=== PATIENT | male | born 1960 | race Caucasian/White ===

== ENCOUNTER 2016-12-18 19:05 | Emergency (ER) | payer OTHER ==
[~2016-12-18] VITALS: Ht 170.2 cm; Wt 81.7 kg
[~2016-12-18 19:05] MED LIST: FLONASE ALLERG9.9 ML NS; MULTIVITAMINS1 EAC7 PO; NORCO 5-325 TA1 EACH PO
[2016-12-18] MEDS ORDERED: VITAMIN D1000 UNI1 PO (19:12)
== END 2016-12-18 19:50 | disposition home or self-care (01) ==
LOC: ED 19:05
DX: S51.812A Laceration without foreign body of left forearm, initial encounter (principal); F17.200 Nicotine dependence, unspecified, uncomplicated; Z79.899 Other long term (current) drug therapy; X58.XXXA Exposure to other specified factors, initial encounter
CPT/HCPCS: 73110; 99283

== ENCOUNTER 2017-05-13 21:20 | Emergency (ER) | payer OTHER ==
[~2017-05-13] VITALS: Ht 170.2 cm; Wt 81.7 kg
[~2017-05-13 21:20] MED LIST changes: +VITAMIN D1000 UNI1 PO
[2017-05-13] MEDS ORDERED: BENTYL10 MG PO (23:28)
== END 2017-05-13 23:50 | disposition home or self-care (01) ==
LOC: ED 21:20
DX: R10.31 Right lower quadrant pain (principal); R10.32 Left lower quadrant pain; F17.200 Nicotine dependence, unspecified, uncomplicated
CPT/HCPCS: 74177; 80053; 81001; 83690; 85025; 96361; 96374; 96375; 99284; J1170; J2405; J7030; Q9967

== ENCOUNTER 2017-05-15 18:52 | Emergency (ER) | payer OTHER ==
[~2017-05-15] VITALS: Ht 170.2 cm; Wt 81.7 kg
[~2017-05-15 18:52] MED LIST changes: +BENTYL10 MG PO
[2017-05-15] MEDS ORDERED: FLAGYL500 MG PO (23:26)
[2017-05-15] MEDS ORDERED: CIPRO500 MG PO (23:26)
== END 2017-05-16 00:04 | disposition home or self-care (01) ==
LOC: ED 18:52
DX: K59.00 Constipation, unspecified (principal); F17.200 Nicotine dependence, unspecified, uncomplicated; Z79.899 Other long term (current) drug therapy
CPT/HCPCS: 80053; 81001; 83690; 85025; 99284

== ENCOUNTER 2021-07-19 18:11 | Emergency (ER) | payer OTHER ==
[~2021-07-19] VITALS: Ht 170.2 cm; Wt 81.7 kg
[~2021-07-19 18:11] MED LIST changes: +CIPRO500 MG PO; +FLAGYL500 MG PO
[2021-07-19] MEDS ORDERED: K-TAB ER20 MEQ PO (18:25)
[2021-07-19] MEDS ORDERED: MAGNESIUM30 MG PO (18:25)
== END 2021-07-19 20:28 | disposition home or self-care (01) ==
LOC: ED 18:11
DX: S86.911A Strain of unspecified muscle(s) and tendon(s) at lower leg level, right leg, initial encounter (principal); X58.XXXA Exposure to other specified factors, initial encounter
CPT/HCPCS: 73560; 96372; 99283-25; J1885

== ENCOUNTER 2021-07-24 15:48 | Emergency (ER) | payer OTHER ==
[~2021-07-24] VITALS: Ht 170.2 cm; Wt 81.7 kg
[~2021-07-24 15:48] MED LIST changes: +K-TAB ER20 MEQ PO; +MAGNESIUM30 MG PO
--- OUTSIDE RECORDS SUMMARY | 2021-07-24 15:50 | XMS ---
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 Gloria VISIT COUNT (12 MO.) 2 [facility] TOTAL 2 NOTE: Visits indicate total known visits. ED/UCC VISIT TRACKING (12 MO.) 07/24/2021 15:49 [facility] TYPE: Emergency COMPLAINT: - POSS BLOODCLOT 07/19/2021 18:12 [facility] TYPE: Emergency COMPLAINT: - R LEG INJURY DIAGNOSES: - Pain in right knee - Exposure to other specified factors, initial encounter - Strain of unspecified muscle(s) and tendon(s) at lower leg level, right leg, initial encounter INPATIENT VISIT TRACKING (12 MO.) No inpatient visits to display in this time frame [email or web address]
[2021-07-24] MEDS ORDERED: HYDROCODON-ACE1 EA10 PO (17:31)
[2021-07-24] MEDS ORDERED: ELIQUIS5 MG PO (18:05)
== END 2021-07-24 18:17 | disposition home or self-care (01) ==
LOC: ED 15:48
DX: I82.401 Acute embolism and thrombosis of unspecified deep veins of right lower extremity (principal); F17.200 Nicotine dependence, unspecified, uncomplicated; Z79.899 Other long term (current) drug therapy
CPT/HCPCS: 99283

== ENCOUNTER 2021-07-26 17:40 | Emergency (ER) | payer OTHER ==
[~2021-07-26] VITALS: Ht 170.2 cm; Wt 82.6 kg
[~2021-07-26 17:40] MED LIST changes: +ELIQUIS5 MG PO; +HYDROCODON-ACE1 EA10 PO
--- OUTSIDE RECORDS SUMMARY | 2021-07-26 17:42 | XMS ---
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 Gloira VISIT COUNT (12 MO.) 3 [facility] TOTAL 3 NOTE: Visits indicate total known visits. ED/C VISIT TRACKING (12 MO.) 07/26/2021 17:41 [facility] TYPE: Emergency COMPLAINT: - SHORTNESS OF BREATH AND CHEST PAIN 07/24/2021 15:49 [facility] TYPE: Emergency COMPLAINT: - POSS BLOODCLOT 07/19/2021 18:12 [facility] TYPE: Emergency COMPLAINT: - R LEG INJURY DIAGNOSES: - Pain in right knee - Exposure to other specified factors, initial encounter - Strain of unspecified muscle(s) and tendon(s) at lower leg level, right leg, initial encounter INPATIENT VISIT TRACKING (12 MO.) No inpatient visits to display in this time frame [email or web address]
[2021-07-26] MEDS ORDERED: VENTOLIN HFA18 GM INH (19:17)
--- NOTE | 2021-07-27 17:51 | EKG ---
[facility] [address] [place], [place] [address] Signed Normal sinus rhythm Normal ECG No previous ECGs available Confirmed by AMINATA CHATTERJEE MD ([id number]) on 07/27/2021 5:51:15 PM Electronically Signed By: AMINATA CHATTERJEE MD 07/27/211750 PATIENT NAME: TERA BENJAMIN Electrocardiogram DATE OF : 60 PHYSICIAN: AMINATA CHATTERJEE MD REPORT #: [id number] REPORT IS CONFIDENTIAL AND NOT TO BE RELEASED WITHOUT AUTHORIZATION
== END 2021-07-26 19:37 | disposition home or self-care (01) ==
LOC: ED 17:40
DX: R07.89 Other chest pain (principal); I82.401 Acute embolism and thrombosis of unspecified deep veins of right lower extremity; F17.200 Nicotine dependence, unspecified, uncomplicated; Z79.01 Long term (current) use of anticoagulants; Z79.899 Other long term (current) drug therapy
CPT/HCPCS: 36415; 71045; 80048; 84484; 85025; 93005; 93010; 99285-25

== ENCOUNTER 2022-02-27 19:50 | Emergency (ER) | payer OTHER ==
[~2022-02-27] VITALS: Ht 170.2 cm; Wt 78.5 kg
[~2022-02-27 19:50] MED LIST changes: +VENTOLIN HFA18 GM INH
== END 2022-02-27 21:13 | disposition home or self-care (01) ==
LOC: ED 19:50
DX: T15.02XA Foreign body in cornea, left eye, initial encounter (principal); F17.200 Nicotine dependence, unspecified, uncomplicated; Z79.899 Other long term (current) drug therapy; Z79.891 Long term (current) use of opiate analgesic
CPT/HCPCS: 65222; 99283-25; A9270

== ENCOUNTER 2023-01-23 23:42 | Emergency (ER) | payer OTHER ==
[~2023-01-23] VITALS: Ht 170.2 cm; Wt 81.7 kg
--- OUTSIDE RECORDS SUMMARY | ~2023-01-23 | XMS | Continuity of Care Document ---
Demographics + + + | Address | [address] | | | [place] [address] | + + + | Preferred Language | Unknown | + + + | Marital Status | Never | + + + | Judaism Affiliation | Unknown | + + + | Race | White | + + + | Ethnic Group | Not or | + + + Author + + + | Author | [facility] | + + + | Organization | [facility] | + + + | Address | [address] | | | [place] [address] | + + + | Phone | | + + + Care Team Providers + + + + | Care Business Development Officer Name | Role | Phone | + + + + Unavailable | Unavailable | + + + + Unavailable | Unavailable | + + + + Allergies No information. Encounters No information. Functional Status No information. Immunizations No information. Medications + + + + | date | description | facility | + + + + | 2021-07-24 00:00 | APIXABAN | [facility] | + + + + | 2022-02-27 00:00 | POTASSIUM CHLORIDE | [facility] | + + + + | 2022-02-27 00:00 | FLUTICASONE PROPIONATE | [facility] | + + + + | 2022-02-27 00:00 | CHOLECALCIFEROL (VITAMIN | [facility] | | | D3) | | + + + + | 2017-05-15 00:00 | CIPROFLOXACIN HCL | [facility] | + + + + | 2017-05-15 00:00 | METRONIDAZOLE | [facility] | + + + + | 2022-02-27 00:00 | MAGNESIUM | [facility] | + + + + | 2022-02-27 00:00 | HYDROCODONE | [facility] | | | BIT/ACETAMINOPHEN | | + + + + | 2013-02-05 00:00 | HYDROCODONE | [facility] | | | BIT/ACETAMINOPHEN | | + + + + | 2021-07-26 00:00 | ALBUTEROL SULFATE | [facility] | + + + + | 2017-05-13 00:00 | DICYCLOMINE HCL | [facility] | + + + + Problems + + + + | date | description | facility | + + + + | 2016-10-01 00:00 | Small bowel obstruction | [facility] | + + + + | 2016-12-18 00:00 | Laceration of left forearm | [facility] | | | | | + + + + | 2017-05-13 00:00 | Nonspecific abdominal pain | [facility] | | | | | + + + + | 2017-05-15 00:00 | Constipation | [facility] | + + + + | 2021-07-19 00:00 | Sprain of right knee | [facility] | + + + + | 2021-07-24 00:00 | Deep vein thrombosis (DVT) | [facility] | | | | | + + + + | 2021-07-26 00:00 | Chest pain | [facility] | + + + + Procedures No information. Results/Labs No information. Social History No information. Vital Signs + + + +---------+ | date | measurement | value | units | + + + +---------+ | 2022-02-27 00:00 | BMI | 27.1 | kg/m2 | + + + +---------+ | 2022-02-27 00:00 | BP_diastolic | 70 | mmHg | + + + +---------+ | 2022-02-27 00:00 | BP_systolic | 132 | mmHg | + + + +---------+ | 2022-02-27 00:00 | heart_rate | 68 | /min | + + + +---------+ | 2022-02-27 00:00 | height_metric | 170.18 | cm | + + + +---------+ | 2022-02-27 00:00 | height_standard | 67 | in | + + + +---------+ | 2022-02-27 00:00 | o2_saturation | 98 | % | + + + +---------+ | 2022-02-27 00:00 | respiration_rate | 16 | /min | + + + +---------+ | 2022-02-27 00:00 | temperature_metric | 36.83 | C | | | | | | + + + +---------+ | 2022-02-27 00:00 | | 98.3 | F | | | temperature_standar | | | | | d | | | + + + +---------+ | 2022-02-27 00:00 | weight_metric | 78.5 | kg | + + + +---------+ | 2022-02-27 00:00 | weight_standard | 173.06 | lb | + + + +---------+"
--- OUTSIDE RECORDS SUMMARY | ~2023-01-23 | XMS | Continuity of Care Document ---
Demographics + + + | Address | [address] | | | [place] [address] | + + + | Preferred Language | Unknown | + + + | Marital Status | Never | + + + | Anabaptism Affiliation | Unknown | + + + | Race | White | + + + | Ethnic Group | Not or | + + + Author + + + | Author | [facility] | + + + | Organization | [facility] | + + + | Address | [address] | | | [place] [address] | + + + | Phone | | + + + Care Team Providers + + + + | Care Senior Reactor Operator Name | Role | Phone | + + + + Unavailable | Unavailable | + + + + Unavailable | Unavailable | + + + + Allergies No information. Encounters No information. Functional Status No information. Immunizations No information. Medications + + + + | date | description | facility | + + + + | 2021-07-24 00:00 | APIXABAN | [facility] | + + + + | 2022-02-27 00:00 | POTASSIUM CHLORIDE | [facility] | + + + + | 2022-02-27 00:00 | FLUTICASONE PROPIONATE | [facility] | + + + + | 2022-02-27 00:00 | CHOLECALCIFEROL (VITAMIN | [facility] | | | D3) | | + + + + | 2017-05-15 00:00 | CIPROFLOXACIN HCL | [facility] | + + + + | 2017-05-15 00:00 | METRONIDAZOLE | [facility] | + + + + | 2022-02-27 00:00 | MAGNESIUM | [facility] | + + + + | 2022-02-27 00:00 | HYDROCODONE | [facility] | | | BIT/ACETAMINOPHEN | | + + + + | 2013-02-05 00:00 | HYDROCODONE | [facility] | | | BIT/ACETAMINOPHEN | | + + + + | 2021-07-26 00:00 | ALBUTEROL SULFATE | [facility] | + + + + | 2017-05-13 00:00 | DICYCLOMINE HCL | [facility] | + + + + Problems + + + + | date | description | facility | + + + + | 2016-10-01 00:00 | Small bowel obstruction | [facility] | + + + + | 2016-12-18 00:00 | Laceration of left forearm | [facility] | | | | | + + + + | 2017-05-13 00:00 | Nonspecific abdominal pain | [facility] | | | | | + + + + | 2017-05-15 00:00 | Constipation | [facility] | + + + + | 2021-07-19 00:00 | Sprain of right knee | [facility] | + + + + | 2021-07-24 00:00 | Deep vein thrombosis (DVT) | [facility] | | | | | + + + + | 2021-07-26 00:00 | Chest pain | [facility] | + + + + Procedures No [...]
[2023-01-24 00:18] VITALS: BP 148/90
== END 2023-01-24 00:18 | disposition home or self-care (01) ==
LOC: ED 23:42
DX: H00.014 Hordeolum externum left upper eyelid (principal); F17.200 Nicotine dependence, unspecified, uncomplicated; Z79.899 Other long term (current) drug therapy
CPT/HCPCS: 99283

== ENCOUNTER 2023-10-13 08:55 | Day surgery (SDC) | payer OTHER ==
[2023-10-11 14:27] VITALS: BP 130/77
[~2023-10-13] VITALS: Ht 165.1 cm; Wt 77.3 kg
[~2023-10-13 08:55] MED LIST changes: +IBLOOD GLUCOSE TEST STRIP 1 EA TEST VI PRN; +LACTATED RINGER'S 1,000 ML IV SCH; +LIDOCAINE HCL 1% 5 ML SDV INJ ONE; +propofoL 200 MG/20 ML VIAL ONE
[2023-10-13 09:38] VITALS: BP 142/75
[2023-10-13] MEDS ORDERED: ATROPINE SULFATE 1 MG/ML VIAL ONE (10:30)
[2023-10-13] MEDS ORDERED: LACTATED RINGER'S 1,000 ML IV ONE (10:50)
--- NOTE | 2023-10-13 11:02 | NUR ---
10/13/23 1102 Leena Bell 1055: PATIENT ARRIVED TO PACU NON-RESPONSIVE. ORAL AIRWAY IN PLACE.
[2023-10-13 11:30] VITALS: BP 135/87
--- NOTE | 2023-10-13 12:26 | OR ---
[facility] [address] [place], [place] [address] Signed DATE OF OPERATION: 10/13/2023 SURGEON: Naldo Buck MD PREOPERATIVE DIAGNOSES: 1. Paternal grandfather with colon cancer. 2. Sisters x2 with colon polyps in their 50s. 3. Internal and external hemorrhoids. 4. Diverticulosis. POSTOPERATIVE DIAGNOSIS: Unremarkable. PROCEDURE: Colonoscopy without biopsy. ESTIMATED BLOOD LOSS: None. INDICATIONS: Malcolm is a 63-year-old gentleman, asked to see me for a followup colonoscopy. He has no lower GI complaints. His paternal grandfather did have colon cancer. Both his sisters have had colon polyps in their 50s. Malcolm has undergone colonoscopy in 2010 and in 2017 and is known to have very minimal diverticulosis along with minimal internal and external hemorrhoids. He continues to work as a . In the office, I had given him a pamphlet on colonoscopy. We reviewed the nature of the test. There is risk including, but not limited to gas bloating, crampy abdominal pain, bleeding, perforation requiring surgery, and missed diagnosis. We also reviewed the need for monitored anesthesia care given his previous history of methamphetamine abuse and his use of marijuana currently. That always proved to be a rao decision. He had expressed understanding and wished to proceed. PROCEDURE IN DETAIL: Malcolm was taken into our endoscopy suite and placed in the left lateral decubitus position. He was given monitored anesthesia care with propofol infusion per our nurse liquefaction supervisor. A digital rectal exam was performed and he had very minimal external hemorrhoids. He had good sphincter tone. There were no masses. The adult colonoscope was introduced, advanced all around into the cecum under direct visualization of the camera. Unfortunately, he ate chicken in the morning yesterday and so he did have some chicken in his colon and some liquid particulate stool matter. Most of I was Electronically Signed By: NALDO BUCK MD 10/13/23 1226 PATIENT NAME: MALCOLM BENJAMIN OPERATIVE REPORT DATE OF : 60 REPORT #: [id number] PHYSICIAN: NALDO BUCK MD PCP: LONI REAL PA-C REPORT IS CONFIDENTIAL AND NOT TO BE RELEASED WITHOUT AUTHORIZATION [facility] [address] [place] [id number] Signed able to suction out. We could easily see the appendiceal orifice and the ileocecal valve. The scope was then slowly withdrawn. We saw no pathology throughout his entire colon or rectum. We did not specifically see any diverticula on this occasion, but again we had to suction out quite a bit of liquid particulate stool matter in that left colon. Once in the rectum, the scope was retroflexed. He does have minimal internal hemorrhoids as well. After this, the gas was suctioned out the colonoscope removed. Malcolm tolerated the procedure quite well. RECOMMENDATIONS: Malcolm can return in 5 years for repeat colonoscopy. Naldo Buck MD ALB/MODL /[id number] cc: MD Loni Ibrahim PA-C Copies: NALDO BUCK MD, CHLOE K PA-C ~ Electronically Signed By: NALDO BUCK MD 10/13/23 1226 PATIENT NAME: MALCOLM BENJAMIN OPERATIVE REPORT DATE OF : 60 REPORT #: [id number] PHYSICIAN: NALDO BUCK MD PCP: LONI REAL PA-C REPORT IS CONFIDENTIAL AND NOT TO BE RELEASED WITHOUT AUTHORIZATION
--- NOTE | 2023-10-14 06:59 | EKG ---
[facility] [address] [place] [address] Signed Marked sinus bradycardia Incomplete right bundle branch block Abnormal ECG When compared with ECG of 11-OCT-2023 14:33, No significant change was found Confirmed by Alvarado Davis ([id number]) on 10/14/2023 6:58:53 AM Electronically Signed By: ALVARADO DAVIS MD 10/14/23 0659 PATIENT NAME: TERA BENJAMIN Electrocardiogram DATE OF : 60 PHYSICIAN: ALVARADO DAVIS MD REPORT #: [id number] REPORT IS CONFIDENTIAL AND NOT TO BE RELEASED WITHOUT AUTHORIZATION
== END 2023-10-13 11:35 | disposition home or self-care (01) ==
LOC: DS 08:55
PROVIDERS: ATTEND Colon & Rectal Surgery
PROC: 0DJD8ZZ Inspection of Lower Intestinal Tract, Via Natural or Artificial Opening Endoscopic (ICD-10-PCS; principal; 2023-10-13 09:45)
DX: K64.4 Residual hemorrhoidal skin tags (principal); K64.8 Other hemorrhoids; Z80.0 Family history of malignant neoplasm of digestive organs; Z83.719 Family history of colon polyps, unspecified; F17.210 Nicotine dependence, cigarettes, uncomplicated; F12.10 Cannabis abuse, uncomplicated; Z86.718 Personal history of other venous thrombosis and embolism; Z87.898 Personal history of other specified conditions; Z79.01 Long term (current) use of anticoagulants; Z79.899 Other long term (current) drug therapy
CPT/HCPCS: 93005; 93010; J0461; J2704; J7121